=== PATIENT | female | born 1940 | race Caucasian/White ===

== ENCOUNTER → 2023-10-15 13:43 | Outpatient (REF) | payer MEDICARE, SELFPAY ==
[2023-10-15 14:05] LABS: % Eosinophils 4.4 % (0-6); % Immature Granulocytes 0.2 % (0-0.5); % Lymphocytes 20.8 % (20.5-51.1); % Monocytes 11.8 % (1.7-9.3); % Neutrophils 61.8 % (42.2-75.2); Absolute Basophils 0.1 10^3/uL (0-0.2); Absolute Eosinophils 0.2 10^3/uL (0-0.7); Absolute Lymphocytes 1.1 10^3/uL (1.2-3.4); Absolute Monocytes 0.6 10^3/uL (0.1-0.6); Absolute Neutrophils 3.2 10^3/uL (1.4-6.5); Hematocrit 36.2 % (37.0-47.0); Hemoglobin 11.8 g/dL (12.0-16.0); Mean Corp Hgb Conc. 32.6 g/dL (33.0-37.0); Mean Corpuscular Hgb 31.1 pg (27.0-31.0); Mean Corpuscular Volume 95.5 fL (81.0-99.0); Mean Platelet Volume 10.6 fL (7.4-10.4); Nucleated Red Blood Cells % 0 %; Platelet Count 169 10^3/uL (130-400); Red Blood Cell Count 3.79 10^6/uL (4.20-5.40); Red Cell Dist. Width 13.2 % (11.5-14.5); White Blood Cell Count 5.2 10^3/uL (4.8-10.8)
[2023-10-15 14:17] LABS: ALT (SGPT) 16 U/L (0-35); AST (SGOT) 27 U/L (14-36); Albumin 3.3 g/dl (3.5-5.0); Alkaline Phosphatase 95 U/L (38-126); Blood Urea Nitrogen 24 mg/dl (7-17); Calcium 9.4 mg/dl (8.4-10.2); Carbon Dioxide 27 mmol/L (22-30); Chloride 109 mmol/L (98-107); Glucose 86 mg/dl (70-99); HDL Cholesterol 68 mg/dl; LDL Cholesterol, Calculated 44 mg/dl; Sodium 140 mmol/L (135-145); Total Bilirubin 0.3 mg/dl (0.2-1.3); Total Cholesterol 123 mg/dl (50-199); Total Protein 5.8 g/dl (6.3-8.2); Triglyceride 59 mg/dl (10-149); Very Low Density Lipoprotein 11 mg/dl (0-30); eGFR > 60.00
[2023-10-15 14:33] LABS: Free T4 0.95 ng/dl (0.78-2.19); Vitamin D, 25-OH*** 35.1 ng/mL (30-80)
[2023-10-15 14:47] LABS: TSH 5.72 uIU/ml (0.47-4.68)
[2023-10-16 09:59] LABS: Glycohemoglobin (HgbA1c) 6.4 % (4.0-5.6)
== END ==
LOC: OLABMERCHI 13:43
PROVIDERS: Nurse Practitioner Gerontology; ATTENDING PHYSICIAN Hospitalist
DX: R94.4 Abnormal results of kidney function studies (principal); D64.9 Anemia, unspecified; E78.5 Hyperlipidemia, unspecified; E11.9 Type 2 diabetes mellitus without complications; E03.9 Hypothyroidism, unspecified; N30.00 Acute cystitis without hematuria; E55.9 Vitamin D deficiency, unspecified
CPT/HCPCS: 36415; 80053; 80061; 82306; 83036; 84439; 84443; 85025

== ENCOUNTER 2024-02-02 02:48 | Emergency (ER) | payer MEDICARE, SELFPAY ==
[2024-02-02 03:13] VITALS: BP 149/89
--- NOTE | 2024-02-02 03:56 | ED.GENMED ---
History of Present Illness
<REJI Taylor - Last Filed: 02/02/24 04:10>
General
Chief Complaint: Fall
Source: patient
Exam Limitations: dementia
Time Seen by Provider: 02/02/24 03:48
Nursing documentation reviewed up to this point in time: agreed with
History of Present Illness
History of Present Illness:
Patient is a 83yo F w/ hx of dementia who presents to ED after unwitnessed fall. Pt was found on ground next to bed. She does not remember falling, remembers waking up on floor. Does not remember if she was in pain but could not move. She denies any
pain currently or other sxs currently.
Review of Systems
<REJI Taylor - Last Filed: 02/02/24 04:10>
Review of Systems
Constitutional: Denies fever, fatigue or chills
Respiratory: Denies cough or trouble breathing
Cardiac: Denies chest pain or palpitations
ABD/GI: Denies abdominal pain, nausea, vomiting, diarrhea or constipated
Musculoskeletal: Denies joint pain, muscle pain, muscle stiffness, neck pain or back pain
Neurological: Denies dizzy, headache, weakness or numbness
Phy Exam
<REJI Taylor - Last Filed: 02/02/24 04:10>
General Physical Exam
General Presentation: well appearing
General age: appears stated age
General Skin: warm and dry
General Habitus: elderly
General Mental: alert
ENT Exam
ENT Exam: normocephalic
Eye Exam
Eye Exam: PERRL
Cardiovascular Exam
Cardiovascular Exam: regular rate/rhythm, no edema, no gallop and no murmur
Pulmonary Exam
Pulmonary Exam: lungs clear, no respiratory distress, no rales, no crackles, no rhonchi and no wheezing
Neurological Exam
Neurological Exam: alert, no motor deficits and speech normal
Musculoskeletal Exam
Musculoskeletal Exam: full ROM, no edema and other (no tenderness to palpation of B/L shoulder, elbow, wrist, thighs, knee, skins, ankles, feet. )
Course
<Christina Salgado STPA - Last Filed: 02/02/24 04:10>
Orders/Labs/Results
Orders:
Orders
02/02/24 04:03
Accucheck Once [Bedside Glucose Monitoring-ONCE] As Directed
02/02/24 04:25
Ambulate Patient-Treatment ONCE
Abnormal Lab Results
02/02/24
05:55
POC Glucose 141 H mg/dl
(70-99)
Vital Signs
Initial and Last Documented VS:
Initial Vital Signs
Temp Pulse Resp BP Pulse Ox
97.7 F 67 18 149/89 100
02/02/24 03:13 02/02/24 03:13 02/02/24 03:13 02/02/24 03:13 02/02/24 03:13
Last Documented Vital Signs
Temp Pulse Resp BP Pulse Ox
97.7 F 67 18 149/89 100
02/02/24 03:13 02/02/24 03:13 02/02/24 03:13 02/02/24 03:13 02/02/24 03:13
<Carlee Ghosh DO - Last Filed: 02/02/24 06:15>
Orders/Labs/Results
Orders:
Orders
02/02/24 04:03
Accucheck Once [Bedside Glucose Monitoring-ONCE] As Directed
02/02/24 04:25
Ambulate Patient-Treatment ONCE
Abnormal Lab Results
02/02/24
05:55
POC Glucose 141 H mg/dl
(70-99)
Vital Signs
Initial and Last Documented VS:
Initial Vital Signs
Temp Pulse Resp BP Pulse Ox
97.7 F 67 18 149/89 100
02/02/24 03:13 02/02/24 03:13 02/02/24 03:13 02/02/24 03:13 02/02/24 03:13
Last Documented Vital Signs
Temp Pulse Resp BP Pulse Ox
97.7 F 67 18 149/89 100
02/02/24 03:13 02/02/24 03:13 02/02/24 03:13 02/02/24 03:13 02/02/24 03:13
<REJI Taylor - Last Filed: 02/02/24 04:10>
*Critical Care Note
Total Time (30-74mins, 75-104mins- exclusive of procedures): Not Applicable
<Carlee Ghosh DO - Last Filed: 02/02/24 06:15>
*Pulse Oximetry
Patient hypoxic: no
*Leather Sprayer Interpretation
Rate: normal
Interpretation: normal
Rhythm: sinus
ED Attending Note
<REJI Taylor - Last Filed: 02/02/24 04:10>
-
Portions of this chart may have been created with voice recognition software.� Occasional wrong word or��sound alike� substitutions may have occurred due to the inherent limitations of voice recognition software.
<Carlee Ghosh DO - Last Filed: 02/02/24 06:15>
ED Attending Note
Patient seen and examined by attending physician: Yes
I performed the substantive portion of visit, reviewed & personally made and approve the management plan that is documented in note by myself or JAD.: Yes
ED Attending Note:
This is an 83-year-old woman who resides in a local penitentiary/dementia care unit. She has history of Alzheimer's dementia, hyperlipidemia, insulin requiring diabetes, GERD, hypothyroidism.
She is sent to the ED by [facility]entiary staff after suffering an unwitnessed fall. She denies injury.
She takes no anticoagulants save for low-dose aspirin.
Patient is not able to recall how or why she fell. She was found lying next to her bed.
TRAUMA EXAM:
VITAL SIGNS: Vital signs reviewed, cooperative. 83-year-old woman appears her stated age, bright and alert, pleasant, appears in no acute distress.
DISTRESS: No active disease
EYES: Pupils reactive, no orbital trauma
NOSE: No deformity or epistaxis
FACE AND SCALP: No scalp or facial trauma, external canals no blood
NECK: Supple nontender, full range of motion without difficulty nor pain.
BACK: Back nontender, pelvis stable to compression. Patient able to sit up with ease and without difficulty.
RESPIRATORY: No distress, breath sounds normal, no tender chest wall
CARDIAC: No murmur, pulses equal and strong
ABDOMEN: Soft nontender bowel sounds normal
SKIN: Skin intact no bleeding, color normal
EXTREMITIES: Nontender. There is very mild, early ecchymosis bilateral anterior knees left greater than right. No local tenderness to palpation. Full knee and hip range of motion without difficulty nor pain.
NEUROLOGICAL: Alert, oriented x 2, no motor deficits
PSYCH: Mood affect normal
History is quite limited due to dementia however patient remains bright and alert, cooperative, following commands and answering simple questions appropriately. Overall exam is
Benign, unremarkable. There is note of very minimal bruising anterior knees but no palpable tenderness and full range of motion. I suspect she may have fallen on her hands and knees. There is no evidence of head injury. She takes no
anticoagulants. Appears to be at her baseline. No indication for CT of the head.
As patient has history of diabetes, maintained on long-acting nighttime insulin, will check Accu-Chek.
Will ambulate patient and assess for ambulation stability and for any pain complaints.
If no difficulty ambulating will plan to discharge back to [facility] for continued care.
02/02/2024 0615 AM
Patient ambulated with steady unaided gait.
She continues to offer no complaints.
Accu-Chek 141.
Will discharge back to penitentiary for continued care.
Discharge Plan
Departure
Patient Disposition: Custodial/SNF
Date of Disposition: 02/02/24
Time of Disposition: 06:14
Patient with high blood pressure during this ER visit?: No
Condition: Good
Discharge Problem:
unwitnessed fall at penitentiary, bilateral knee contusions
Instructions: Contusion (DC), Preventing falls in adults
Referrals:
Linda Aranda, DO [Family Provider] - Call in 1-3 days for appt
Discharge Date and Time
Print Language: BARBADIAN
[2024-02-02 05:57] LABS: Glucose - Point of Care 141 mg/dl (70-99)
[2024-02-02 07:13] VITALS: BP 99/70
== END 2024-02-02 09:40 ==
LOC: EMR 02:48
PROVIDERS: EMERGENCY PHYSICIAN Emergency Medicine; FAMILY PHYSICIAN Hospitalist
DX: S80.01XA Contusion of right knee, initial encounter (principal); S80.02XA Contusion of left knee, initial encounter; W19.XXXA Unspecified fall, initial encounter; Y92.129 Unspecified place in nursing home as the place of occurrence of the external cause; I10 Essential (primary) hypertension; E03.9 Hypothyroidism, unspecified; E11.9 Type 2 diabetes mellitus without complications; E78.00 Pure hypercholesterolemia, unspecified; F02.80 Dementia in other diseases classified elsewhere, unspecified severity, without behavioral disturbance, psychotic disturbance, mood disturbance, and anxiety; G30.9 Alzheimer's disease, unspecified; K21.9 Gastro-esophageal reflux disease without esophagitis
CPT/HCPCS: 99282; 82962

== ENCOUNTER 2024-03-20 17:28 | Observation (INO) | payer MEDICARE, SELFPAY ==
[2024-03-20] VITALS (7 sets, daily range): BP systolic 114–155; BP diastolic 49–82; BMI 29.3
[2024-03-20 12:49] LABS: % Basophils 0.3 % (0-2); % Eosinophils 0.3 % (0-6); % Immature Granulocytes 0.3 % (0-0.5); % Lymphocytes 4.3 % (20.5-51.1); % Monocytes 9.5 % (1.7-9.3); % Neutrophils 85.3 % (42.2-75.2); Absolute Lymphocytes 0.3 10^3/uL (1.2-3.4); Absolute Monocytes 0.6 10^3/uL (0.1-0.6); Absolute Neutrophils 5.5 10^3/uL (1.4-6.5); Hemoglobin 13.5 g/dL (12.0-16.0); Mean Corp Hgb Conc. 32.9 g/dL (33.0-37.0); Mean Corpuscular Hgb 31.8 pg (27.0-31.0); Mean Corpuscular Volume 96.7 fL (81.0-99.0); Mean Platelet Volume 10.7 fL (7.4-10.4); Nucleated Red Blood Cells % 0 %; Platelet Count 136 10^3/uL (130-400); Red Blood Cell Count 4.24 10^6/uL (4.20-5.40); Red Cell Dist. Width 12.4 % (11.5-14.5); White Blood Cell Count 6.5 10^3/uL (4.8-10.8)
[2024-03-20 12:54] LABS: Urine Albumin Trace (Neg - Trace); Urine Bilirubin Negative (Negative); Urine Character Clear (Clear); Urine Color Yellow; Urine Glucose 2+ (Negative); Urine Ketone Negative (Negative); Urine Leukocyte Negative (Negative); Urine Nitrite Negative (Negative); Urine Occult Blood 2+ (Negative); Urine Specific Gravity 1.015 (<1.030); Urine Urobilinogen 1+ (Neg - 1+); Urine pH 6.5 (5.0-9.0)
[2024-03-20 12:59] LABS: Lactic Acid 2.2 mmol/L (0.7-2.0)
[2024-03-20 13:02] LABS: ALT (SGPT) 18 U/L (0-35); AST (SGOT) 25 U/L (14-36); Alkaline Phosphatase 90 U/L (38-126); Blood Urea Nitrogen 18 mg/dl (7-17); Calcium 9.3 mg/dl (8.4-10.2); Carbon Dioxide 24 mmol/L (22-30); Chloride 100 mmol/L (98-107); Estimated Creatinine Clearance 39 ml/min; Glucose 316 mg/dl (70-99); Potassium 4.2 mmol/L (3.5-5.1); Sodium 135 mmol/L (135-145); Total Bilirubin 0.5 mg/dl (0.2-1.3); Total Protein 6.4 g/dl (6.3-8.2); eGFR 49.86
[2024-03-20 13:11] LABS: COVID-19 Antigen Negative (Negative)
[2024-03-20 13:27] LABS: Urine Squamous Cell 0-2 /LPF (Few)
[2024-03-20 13:28] LABS: Urine Bacteria Few (Negative); Urine White Cell 0-2 /HPF (0-5)
[2024-03-20] MEDS: TYLENOL 650 MG PO ×2 (13:52→20:57)
--- NOTE | 2024-03-20 14:05 | ED.GENMED ---
History of Present Illness
General
Chief Complaint: Fever
Source: patient and family
Time Seen by Provider: 03/20/24 11:49
History of Present Illness
History of Present Illness:
84yoF with a history of dementia, hyperlipidemia, insulin dependent diabetes, and hypothyroidism presenting via EMS for evaluation of a fever. Patient is a resident of [facility]. The majority of history is provided by daughter at
bedside. Patient has been increasingly weak and fatigued over the past week or so. She has not been getting out of bed much. She is also having episodes of urinary incontinence at nighttime. Patient has a history of frequent UTIs and daughter is
concerned that she has 1 currently. She was febrile to 100.5 at her correction today which prompted EMS call. Patient's only current complaint is feeling fatigued.
Phy Exam
General Physical Exam
General Presentation: well appearing and no apparent distress
General age: appears stated age
General Skin: warm and dry
General Habitus: normal
ENT Exam
ENT Exam: normocephalic
Cardiovascular Exam
Cardiovascular Exam: regular rate/rhythm
Pulmonary Exam
Pulmonary Exam: lungs clear, no respiratory distress, no rales, no crackles, no rhonchi and other (Frequent dry cough)
Gastrointestinal Exam
Gastrointestinal Exam: non tender, soft and non distended
Neurological Exam
Neurological Exam: alert
Skin Exam
Skin Exam: normal color and warm/dry
Psychiatric Exam
Psychiatric Exam: normal mood/affect
Sepsis
Sepsis Screening
Sepsis Assessment: Sepsis Ruled Out
Sepsis Screen
Sepsis Screen: Sepsis Ruled Out
Date: 03/20/24
Time: 17:43
Course
Orders/Labs/Results
Orders:
Orders
03/20/24 11:57
Straight cath- Treatment ONCE
03/20/24 12:11
COVID-19 Antigen Urgent
Source: Nasal Swab
Complete Blood Count/With Diff Urgent
Comprehensive Metabolic Panel Urgent
Lactate Level [Lactic Acid] Urgent
Magnesium Urgent
Comment: ADD ON
Phosphorus Urgent
Comment: ADD ON
TSH Reflex To Free T4 Urgent
Comment: ADD ON
Blood Culture Q30M
MARCIAL Source: Blood/Venous
Specimen Description:
Blood Culture Q30M
MARCIAL Source: Blood/Venous
Specimen Description:
Influenza A+B Rapid Molecular Urgent
MARCIAL Source: Nasal Swab
Specimen Description:
03/20/24 12:27
Urinalysis Reflex To Culture Urgent
Date Specimen was Collected: 03/20/24
Time Specimen was Collected: 12:26
Urine Microscopic Reflex Cult Urgent
03/20/24 13:12
Electrocardiogram (*1) Urgent
Reason for Study: Fatigue / Weakness
EKG- Treatment ONCE
Acetaminophen [Tylenol] 650 mg PO NOW STA
CR Chest - 2 Views Urgent
Comment:
Reason For Exam: fever
03/20/24 14:08
0.9% Sodium Chloride 500 ml [Nss] 500 ml IV BOLUS
CefTRIAXone [Rocephin] 2,000 mg IV NOW STA
03/20/24 14:43
Sterile Water [Sterile Water For Injection] 20 ml .ROUTE .STK-MED
03/20/24 16:33
Add On- LAB Urgent
Tests Added?: tsh with free t4 rflex, mag , phos
03/20/24 17:09
Admit/Transfer Patient As Directed
Co-Sign Provider:
Level of Care: Observation services
Assign to:: Telemetry
Physician / Group: cody walker
Diagnosis: febrile illness likley viral URI, mike 2/2 to fever, dementia hx
Reason for Telemetry: Arrhythmia
Date to Stop Telemetry: 03/23/24
Time to Stop Telemetry: 11:00
Code Status As Directed
Resuscitation Status: Full Code
03/20/24 17:10
Lactic Acid Urgent
03/20/24 17:11
PRN Pain Medication Management As Directed
May give lesser potent ordered pain med per pt: Yes
preference::
Protocol:: Medication orders for pain may be administered in a
manner that supports deferring to patient preference
when the pt is:
- Requesting an ordered lesser potent pain medication.
Least to most potent pain medications are defined
as: acetaminophen < NSAID < tramadol < opioids
(morphine, oxycodone, hydromorphone).
- Requesting a lesser dose of the same medication IF
ORDERED.
- Requesting a less intrusive route of administration
if both routes are prescribed by the provider (PO <
IV).
03/23/24 11:00
DC Protocol for Telemetry ONCE
Abnormal Lab Results
03/20/24 03/20/24
12:11 12:27
MCH 31.8 H pg
(27.0-31.0)
MCHC 32.9 L g/dL
(33.0-37.0)
MPV 10.7 H fL
(7.4-10.4)
Absolute Lymphs (auto) 0.3 L 10^3/uL
(1.2-3.4)
Neutrophils % 85.3 H %
(42.2-75.2)
Lymphocytes % 4.3 L %
(20.5-51.1)
Monocytes % 9.5 H %
(1.7-9.3)
BUN 18 H mg/dl
(7-17)
Creatinine 1.1 H mg/dL
(0.6-1.0)
Glucose 316 H mg/dl
(70-99)
Lactic Acid 2.2 H mmol/L
(0.7-2.0)
Ur Occult Blood Reflex 2+ A
(Negative)
Urine RBC 7-10 A /HPF
(0-2)
Urine Bacteria (Reflex) Few A
(Negative)
Urine Glucose 2+ A
(Negative)
03/20/24 12:11
03/20/24 12:11
Vital Signs
Initial and Last Documented VS:
Initial Vital Signs
Pulse Ox
98
03/20/24 11:46
Last Documented Vital Signs
Temp Pulse Resp BP Pulse Ox
101.4 F H 76 18 124/57 96
03/20/24 12:03 03/20/24 15:00 03/20/24 12:03 03/20/24 14:47 03/20/24 17:00
MDM/Problems Addressed
Differential Diagnosis Includes:
84yoF here with generalized weakness and fatigue. Temp 100.5 at correction today. Hx of dementia. Rectal temp 101.4 on arrival. Remainder of vitals stable. Differential diagnosis includes but is not limited to: UTI, pneumonia, viral illness,
sepsis, failure to thrive
Initial ED plan: Check septic workup including blood cultures, lactate, UA, COVID/flu swab. Tylenol for fever.
*EKG
Interpreted by ED Provider?: Yes
EKG Intrepretation Date: 03/20/24
Heart Rate: 79
Rate: normal
Rhythm: sinus
[place]: normal axis
Interval: normal interval
QRS Pattern: normal QRS
Ischemia: no ischemia
*Critical Care Note
Total Time (30-74mins, 75-104mins- exclusive of procedures): Not Applicable
Update Note
Update Note:
Lactate 2.2. White count normal. Glucose 316. No overt signs of infection on UA. CXR obtained which appears normal. Unclear etiology of fever. IV Rocephin ordered and she was admitted for further management.
ED Attending Note
-
Portions of this chart may have been created with voice recognition software.� Occasional wrong word or��sound alike� substitutions may have occurred due to the inherent limitations of voice recognition software.
Discharge Plan
Departure
Patient Disposition: Admit
Date of Disposition: 03/20/24
Time of Disposition: 15:28
Presentation/result/management discussed w/ accepting MD/DO: Hospitalist
Discharge Problem:
Fever, Generalized weakness
Interventions
Interventions:
*Risk Screen - Suicide Last Done: 03/20/24 12:07
*General Assessment Last Done: 03/20/24 12:07
*Neglect/Abuse Screening Last Done: 03/20/24 12:07
ED- Fall Risk Assessment Last Done: 03/20/24 13:06
*ED COVID-19 Vaccine History Last Done: 03/20/24 12:07
ED- Neurological Assessment Last Done: 03/20/24 13:06
ED-Skin Assessment Last Done: 03/20/24 13:06
[2024-03-20] MEDS: ROCEPHIN 2000 MG IV (14:49)
[2024-03-20] MEDS: NSS 500 IV (14:50)
--- NOTE | 2024-03-20 16:33 | HPS.HSE ---
Family Physician
-
Family Physician: Edwin Champion
Chief Complaint
-
Fever, weakness today
History of Present Illness
84-year-old female from [facility] care presenting with fatigue and weakness over the past week with urinary incontinence at night and fever 101.4 rectal here on exam. She was reportedly febrile at [facility] 100.5 prior to coming to the
ER today. Her daughter Mirna is at bedside and states she has seen her over the past few days and noticed that she had some fatigue and worse cough than her baseline with flushed face secondary to current temperature. She denies hearing any
reports from the retirement regarding abdominal pain, vomiting, diarrhea, chest pain, diaphoresis, cough, shortness of breath. The patient is awake and alert oriented to first and last name and daughter's name but not history due to history of
dementia. Her granddaughter who is a nurse was on the phone I went over patient's lab work including chest x-ray COVID and flu results and plan to observe overnight repeat labs PT OT consult and likely discharge back to [facility] if stable. She
has past medical history of dementia, HLD, DM2, CKD 3B, asthma, hypothyroidism, GERD, hypothyroidism, insomnia, glaucoma, osteoporosis, frequent UTIs.
Medical History
Past Medical History
Past Medical History: Reports Other
Additional Past Medical History:
dementia
HLD
DM2
CKD 3B
asthma
hypothyroidism
GERD
insomnia
glaucoma
osteoporosis
frequent UTIs.
Past Surgical History: Reports Other
Additional Past Surgical History:
Hysterectomy
Cholecystectomy
Social History
Tobacco: Non-smoker
Alcohol: None
Drug: None
Personal:
Living: Jail ([facility] dementia unit)
Employment: Retired
Family History
Family History: Unable to Obtain
Allergies / Home Medications
Allergies reflects when Allergies were last updated in [employer].
Home Medications with original date entered in [employer]
Allergy/Medication List:
Allergies
Allergy/AdvReac Type Severity Reaction Status Date / Time
donepezil [From Aricept] Allergy Unknown Verified 02/02/24 03:13
memantine [From Namenda] Allergy Unknown Verified 02/02/24 03:13
iodinated diagnostic agent Allergy Unknown Uncoded 02/02/24 03:13
Home Medications
aspirin 81 mg chewable tablet 81 mg PO DAILY 02/02/24
insulin degludec 200 unit/mL (3 mL) subcutaneous pen 18 unit SC DAILY 02/02/24
latanoprost 0.005 % eye drops 1 drp BOTH EYES HS 02/02/24
levothyroxine 50 mcg tablet 50 mcg PO DAILY 02/02/24
melatonin 5 mg tablet 5 mg PO HS 02/02/24
montelukast 10 mg tablet 10 mg PO DAILY 02/02/24
omeprazole 40 mg capsule,delayed release 40 mg PO DAILY 02/02/24
rosuvastatin 20 mg tablet 20 mg PO HS 02/02/24
nystatin 100,000 unit/gram topical powder 1 applic topical BID abd folds 03/20/24
zinc oxide 1 applic topical TID buttocks 03/20/24
Review of Systems
-
History Source: Patient and Family (Daughter Mirna at bedside, granddaughter via phone)
A 12 point ROS was completed and negative except as noted: Yes
Constitutional: Reports Fever and Other (Reported weakness); Denies Chills
EENT: Denies Sore Throat or Runny Nose
Respiratory: Denies Cough or Trouble Breathing
Cardiac: Denies Chest Pain, Diaphoresis, Palpitations or Syncope
Abdomen/GI: Denies Abdominal Pain, Nausea, Vomiting, Diarrhea, Constipated, Bloody Stools or Black Stools
: Denies Dysuria, Flank Pain or Urgency
Musculoskeletal: Denies Joint Pain or Edema
Skin: Reports Other (Flushed face secondary to current fever); Denies Itching or Rash
Neurological: Denies Dizzy, Headache or Weakness
Endocrine: Reports No Symptoms
Hematologic/Lymphatic: Reports No Symptoms
Psych: Reports Calm
Physical Exam
Vital Signs
Vital Signs
Temp Pulse Resp BP Pulse Ox
101.4 F H 75 18 121/61 98
03/20/24 12:03 03/20/24 14:30 03/20/24 12:03 03/20/24 12:03 03/20/24 12:30
Physical Exam
General: Comfortable, Conversant, Fever and Other (Pleasantly confused oriented to first and last name, daughter at bedside); No Pain or Chills
HEENT: NormoCephalic, Anicteric, PERRLA, [place] Conjunctivae, No Ptosis and Other (Flushed facial appearance secondary to current fever)
Respiratory: Clear; No Wheezes, Rales or Rhonchi
Cardiac: S1/S2 and Regular Rhythm; No Murmur, Rub, Gallop or Peripheral Edema
Breast: Deferred by me
GI: Soft, Non Tender, Non Distended, Normal Bowel Sounds and No Hepatosplenomegaly
Rectal: Deferred by Provider
Genito-urinary: Deferred by me
Musculoskeletal: No Clubbing, No Cyanosis and No Edema
Skin: Warm and Dry; No Rash or Jaundice
Neuro: Awake, Alert, Oriented (To first and last name, daughter at bedside but not history), Cranial Nerves Intact and No Sensory Deficits; No Slurred Speech, Facial Droop, Tremors or Sedated
Psych: Calm
Laboratory Results
-
03/20/24 12:11
03/20/24 12:11
Laboratory Results
Lactic Acid 2.2 mmol/L (0.7-2.0) H 03/20/24 12:11
Total Bilirubin 0.5 mg/dl (0.2-1.3) 03/20/24 12:11
AST 25 U/L (14-36) 03/20/24 12:11
ALT 18 U/L (0-35) 03/20/24 12:11
Alkaline Phosphatase 90 U/L (38-126) 03/20/24 12:11
Impression/Plan
-
Impression/plan:
OBS telemetry
#Acute febrile illness with cough unclear etiology likely Viral illness URI
101.4F temp, HR 75, 121/61, 98% RA
WBC 6.5 normal, lactic acid 2.2,
UA negative, COVID/influenza negative, CXR negative
-Check blood cultures x 2
-Patient was given IV Rocephin in ER we will hold further antibiotics as this is likely due to viral URI
-Follow CBC, BMP, follow lactic acid
-IV NSS 80 cc/h
-PT/OT/case management consult
EKG: HR 79 bpm NSR otherwise normal
#DONITA on CKD 3B
Creat 1.1 was 0.9 10/15/2023
-IV NSS 80 cc/hr
-Follow BMP
#DM2 with hyperglycemia-nonketotic
BS 316 anion gap 11
-Accu-Cheks with SSI LOW, check HgbA1c
-Cont insulin degludec 18 units subcu a.m.
# Dementia
-Lives at [facility]
-Fall precautions
#HLD
-Continue Crestor 20 mg at bedtime
#Asthma-no acute exacerbation
98% on room air
-No inhalers listed
-Continue montelukast 10 mg daily
#Hypothyroidism
-Check TSH with free T4 reflex
-Continue levothyroxine 50 mcg p.o. daily
#GERD
-Continue omeprazole 40 mg daily
#insomnia
-Hold melatonin
Other PMH:
Glaucoma-continue latanoprost 1 drop both eyes at bedtime
osteoporosis
frequent UTIs-UA negative
DVT prophylaxis
Subcu Lovenox
Full code
Patient's medical and financial POA is her son Satish García her daughter Mirna states he is currently in [place] on vacation she has been unable to reach him
[2024-03-20 17:08] LABS: Magnesium 1.8 mg/dl (1.6-2.3); Phosphorus 3.3 mg/dl (2.5-4.5)
--- NOTE | 2024-03-20 17:11 | W.PN.UPDATE ---
Update Note
Progress Note Update
This is an addendum to the H&P written by Ai Jaime on 03/20/2024. Patient seen and examined independently with MANAGER LSW.
84-year-old female past medical history of diabetes, hyperlipidemia, dementia, CKD 3B, asthma, hypothyroidism, GERD, insomnia, glucoma, osteoporosis, frequent UTIs, presenting from [facility] with fever, weakness, generalized bodyaches
and worse cough. Chest x-ray unremarkable. Patient not clinically septic. Since
Slight DONITA on labs. COVID and influenza negative. Urinalysis unimpressive. Blood cultures pending.
Presentation consistent with viral URI. Tylenol, IV fluids. Given ceftriaxone will hold further antibiotics.
[2024-03-20 17:46] LABS: TSH Reflex To Free T4 1.02 uIU/ml (0.47-4.68)
--- NOTE | 2024-03-20 18:37 | EDRN ---
Pt's daughter stated she spoke to her brother, who is the patient's POA. He said the pt is a DNR. He does have paper work but is in [place]. Provider notified.
[2024-03-20 18:46] LABS: Lactic Acid 1.5 mmol/L (0.7-2.0)
[2024-03-20] MEDS: NSS 1000 IV (20:48)
[2024-03-20] MEDS: LOVENOX 40 MG SC (20:58)
--- NOTE | 2024-03-20 21:29 | W.PN.UPDATE ---
Update Note
Progress Note Update
Patient seen for suspected allergic reaction. Patient very flushed, face and chest. She denies shortness of breath, itching, nausea/vomiting at this time. Ordered Benadryl 25 mg IV x 1 and Famotidine 20 mg IV x 1 now.
[2024-03-20 21:38] LABS: Glucose - Point of Care 113 mg/dl (70-99)
[2024-03-20] MEDS: PEPCID 20 MG IV (21:38)
[2024-03-20] MEDS: NSS (PRESERVATIVE FREE) 8 ML IV (21:38)
[2024-03-20] MEDS: BENADRYL 25 MG IV (21:38)
--- NOTE | 2024-03-20 21:40 | PTCARENOTE ---
Received pt from ED via stretcher. patient transferred from bed to standing scale with moderate assistance. Pt only oriented to self (baseline/history of dementia) daughter at bedside. Pt and daughter updated with plan of care and oriented to room.
bed is alarmed and low to floor with call lam in reach. Face is flushed red and patient denies any SOB or chest pain, VSS. COMMUTER TRAIN OPERATOR ordered 25mg of IV Benadryl along with 20mg IV pepcid for possible IV Antibiotic given in ED. All orders reviewed and
acknowledged.
[2024-03-20] MEDS: TRIPLE PASTE 1 APPLIC TOPICAL (22:39)
[2024-03-20] MEDS: XALATAN OPHTHALMIC SOLUTION 1 DROP BOTH EYES (22:39)
--- NOTE | 2024-03-20 23:45 | PTCARENOTE ---
Patient consistently making attempts to get out of bed. Unable to redirect patient and patient aggressive behavior escalating to screaming and grabbing staff members aggressively by the arms. MAIL MACHINE OPERATOR notified. Patient ordered and given 3mg of
melatonin.
[2024-03-21] VITALS (7 sets, daily range): BP systolic 103–144; BP diastolic 57–78; PULSE 82; O2SAT 99
[2024-03-21] MEDS: MELATONIN 3 MG PO (00:32)
[2024-03-21] MEDS: SYNTHROID 50 MCG PO (05:56)
[2024-03-21 07:58] LABS: Glucose - Point of Care 107 mg/dl (70-99)
[2024-03-21] MEDS: NOVOLOG FLEXPEN-LOW RESISTANCE SC (08:04)
--- NOTE | 2024-03-21 08:59 | W.PN.HOSP.TC ---
Today's Communication/Plan
-
Discharge planning today
Assessment / Plan
Assessment / Plan
Physical exam:
General: Well Developed, Well Nourished and No Apparent Distress
HEENT: Normocephalic, Atraumatic and Moist Mucous Membranes
Respiratory: Clear to Auscultation; Negative Wheezes, Rales or Rhonchi
Cardiac: Regular Rhythm and S1/S2
GI: Soft, Nontender and Nondistended
Musculoskeletal: No Clubbing, No Cyanosis and No Edema
Neuro: Awake, Alert and Disoriented
Psych: Calm
A/P:
#Acute febrile illness with cough unclear etiology likely Viral illness URI
Afebrile today
Agree that this is likely viral syndrome. All infectious workup for bacterial infection is negative.
Stop IV fluid
Discussed with patient daughter at bedside today and blood cultures no growth and she is asymptomatic therefore plan to discharge today. PT OT recommended rehab but daughter is making decision for the patient due to her dementia and she is not
interested in rehab at the moment and wants to return back to memory unit today.
Prior to today:
101.4F temp, HR 75, 121/61, 98% RA
WBC 6.5 normal, lactic acid 2.2,
UA negative, COVID/influenza negative, CXR negative
-Check blood cultures x 2
-Patient was given IV Rocephin in ER we will hold further antibiotics as this is likely due to viral URI
-Follow CBC, BMP, follow lactic acid
-IV NSS 80 cc/h
-PT/OT/case management consult
EKG: HR 79 bpm NSR otherwise normal
#Abnormal rhythm on telemetry:
Abnormal rhythm, unclear if a flutter or interference
I reviewed the rhythm with cardiology (curbsided) and no clear definitive arrhythmia. Twelve-lead EKG repeated today and it is normal sinus rhythm. Will arrange outpatient cardiology eval to see if an event monitor would be useful.
Allergic reaction:
- Resolved
#DONITA on CKD 3B
Creatinine 0.9 today
Stop IV fluid
Prior to today:
Creat 1.1 was 0.9 10/15/2023
-IV NSS 80 cc/hr
-Follow BMP
#DM2 with hyperglycemia-nonketotic
Blood sugar 114 this morning
Prior to today:
BS 316 anion gap 11
-Accu-Cheks with SSI LOW, check HgbA1c
-Cont insulin degludec 18 units subcu a.m.
# Dementia
-Lives at [facility]
-Fall precautions
#HLD
-Continue Crestor 20 mg at bedtime
#Asthma-no acute exacerbation
98% on room air
-No inhalers listed
-Continue montelukast 10 mg daily
#Hypothyroidism
-Check TSH with free T4 reflex and borderline elevated TSH and normal free T4
-Continue levothyroxine 50 mcg p.o. daily
#GERD
-Continue omeprazole 40 mg daily
#insomnia
-Held melatonin but can restart upon discharge
Other PMH:
Glaucoma-continue latanoprost 1 drop both eyes at bedtime
osteoporosis
frequent UTIs-UA negative
DVT prophylaxis
Subcu Lovenox
Full code
Anticipated Discharge: Today
Subjective/Interval History
-
Date of Service: March 21, 2024
Patient feels well today. Afebrile
Objective Data
-
Labs:
Laboratory Results
03/21/24
08:56
WBC Pending
Hgb Pending
Hct Pending
Plt Count Pending
Sodium Pending
Potassium Pending
Chloride Pending
Carbon Dioxide Pending
BUN Pending
Creatinine Pending
Glucose Pending
Calcium Pending
Total Bilirubin Pending
AST Pending
ALT Pending
Alkaline Phosphatase Pending
Vital Signs:
Vital Signs
Temp Pulse Resp BP Pulse Ox
97.8 F 74 18 144/58 100
03/21/24 07:40 03/21/24 07:40 03/21/24 07:40 03/21/24 07:40 03/21/24 07:40
I&O
03/20/24 03/21/24 03/22/24
06:59 06:59 06:59
Intake Total 800 / 800
Balance 800 / 800
[2024-03-21] MEDS: PROTONIX 40 MG PO (09:15)
[2024-03-21] MEDS: LOW STRENGTH ASPIRIN 81 MG PO (09:15)
[2024-03-21] MEDS: SINGULAIR 10 MG PO (09:16)
[2024-03-21] MEDS: TRIPLE PASTE 1 APPLIC TOPICAL ×2 (09:17→16:23)
[2024-03-21 09:20] LABS: % Basophils 0.5 % (0-2); % Eosinophils 0.5 % (0-6); % Immature Granulocytes 0.3 % (0-0.5); % Lymphocytes 12.2 % (20.5-51.1); % Monocytes 10.2 % (1.7-9.3); % Neutrophils 76.3 % (42.2-75.2); Absolute Lymphocytes 0.8 10^3/uL (1.2-3.4); Absolute Monocytes 0.7 10^3/uL (0.1-0.6); Absolute Neutrophils 4.9 10^3/uL (1.4-6.5); Hemoglobin 13.9 g/dL (12.0-16.0); Mean Corp Hgb Conc. 32.3 g/dL (33.0-37.0); Mean Corpuscular Volume 98.9 fL (81.0-99.0); Mean Platelet Volume 10.4 fL (7.4-10.4); Nucleated Red Blood Cells % 0 %; Platelet Count 114 10^3/uL (130-400); Red Blood Cell Count 4.35 10^6/uL (4.20-5.40); Red Cell Dist. Width 12.5 % (11.5-14.5); White Blood Cell Count 6.4 10^3/uL (4.8-10.8)
[2024-03-21 09:26] LABS: ALT (SGPT) 18 U/L (0-35); AST (SGOT) 33 U/L (14-36); Alkaline Phosphatase 84 U/L (38-126); Blood Urea Nitrogen 18 mg/dl (7-17); Calcium 9.2 mg/dl (8.4-10.2); Carbon Dioxide 20 mmol/L (22-30); Chloride 108 mmol/L (98-107); Estimated Creatinine Clearance 46 ml/min; Glucose 114 mg/dl (70-99); Potassium 3.9 mmol/L (3.5-5.1); Sodium 140 mmol/L (135-145); Total Bilirubin 0.5 mg/dl (0.2-1.3); Total Protein 6.7 g/dl (6.3-8.2); eGFR > 60.00
[2024-03-21] MEDS: LANTUS 0.18 UNITS SC (10:29)
--- NOTE | 2024-03-21 10:46 | CM ---
Pt seen bedside w/ daughter, Mirna. Initial assessment completed.
Pt is a resident at [facility] in the memory care unit. Pt is w/ dementia
Pt is independent w/ the use of a walker. Per Mirna, pt is assisted w/ grooming, she assists pt w/ bathing on the weekends.
Per Mirna, pt has no SNF hx, had VN/PT in the past for ankle sprain
Address, point of contact and insurance verified.
PCP: Dr. Edwin Champion
[facility]
PT/OT eval pending, await recs if any
Pt currently admitted in OBS status. BROWN form reviewed, Mirna given copy. Copy placed in chart
Plan: Await PT/OT to determine d/c plan. Pt may can return to [facility] if no rehab needs
[2024-03-21 11:08] LABS: Glycohemoglobin (HgbA1c) 8.3 % (4.0-5.6)
[2024-03-21 11:56] LABS: Glucose - Point of Care 289 mg/dl (70-99)
[2024-03-21] MEDS: NOVOLOG FLEXPEN-LOW RESISTANCE 3 UNITS SC (12:53)
--- NOTE | 2024-03-21 15:57 | W.DCSUMMARY ---
Discharge Summary
Discharge Data
Date of Admission: 03/20/24
Date of Discharge: 03/21/24
-
Pending Results: No
Hospital Course
Patient 84 years old female with history of hypertension, hyperlipidemia, diabetes mellitus, CKD, hypothyroidism, dementia, frequent UTIs, came into the hospital with fever. Patient was kept in observation in the hospital and given IV fluids and
supportive care. She had blood cultures x 2. Blood cultures have remained sterile. She also had chest x-ray and urinalysis that was unremarkable. She had an antibiotic when she came in but that was discontinued. She also might have had an
allergic reaction to it. It sounds like she had a viral syndrome. The following day she was doing well symptomatically and has remained afebrile. She also had an abnormal rhythm on telemetry but when we did that twelve-lead EKG it was normal
sinus rhythm and she has remained asymptomatic. We discussed to refer her to outpatient cardiology for event monitor as outpatient. PT OT saw the patient and recommended rehab but when I talked to patient and family they did not want to pursue
rehab and they want to go back to memory care unit at the same level that she came in. She is stable for discharge today.
Discharge Plan
-
Patient Disposition: Assisted Living
Discharge Diagnosis/Procedures: Viral syndrome. Acute kidney injury. Dementia.
Diet: Low Cholesterol
Activity: As tolerated
Blood Work: Please PCP to order CBC, BMP within 1 week
Referrals:
Henri Drew DO [Active] - in two to four weeks (Abnormal rhythm r/o a fib.)
Edwin Champion DO [Family Provider] - in less than 1 week
Prescriptions:
Continued
latanoprost 0.005 % Drops
1 drp BOTH EYES HS
omeprazole 40 mg Capsule,Delayed Release(Dr/Ec)
40 mg PO DAILY
levothyroxine 50 mcg Tablet
50 mcg PO DAILY
aspirin 81 mg Tablet,Chewable
81 mg PO DAILY
montelukast 10 mg Tablet
10 mg PO DAILY
rosuvastatin 20 mg Tablet
20 mg PO HS
melatonin 5 mg Tablet
5 mg PO HS
insulin degludec 200 unit/mL (3 mL) Insulin Pen
18 unit SC DAILY
nystatin 100,000 unit/gram Powder
1 applic TOPICAL BID
zinc oxide Ointment
1 applic TOPICAL TID
Discharge Orders:
Discharge Patient (As Directed); Ordered 03/21/24
Ordered By: Hu Ware
Discharge Date and Time
Discharge Date/Time: 03/21/24 18:15
Print Language: NEPALI
[2024-03-21 16:13] LABS: Glucose - Point of Care 173 mg/dl (70-99)
[2024-03-21] MEDS: NOVOLOG FLEXPEN-LOW RESISTANCE 1 UNITS SC (16:23)
--- NOTE | 2024-03-21 17:40 | CM ---
has discharged pt to return to [facility].
Per pt's daughter, she called [facility] and states pt can return; daughter to provide transport.
HEIDY called [facility] to discuss return; spoke with Juanita who advised that she did not tell the daughter that pt could return. HEIDY coordinated with EDELMIRA Lanza to provide Juanita with nursing report to determine if Anabell could be accepted back to
[facility]. Family is not interested in rehabilitation services.
Juanita is agreeable to pt returning after discussion with RN.
Plan: Discharge [facility]. Daughter will provide transport.
[facility] Report: [phone]
[facility]
== END 2024-03-21 18:15 | disposition home or self-care (01) ==
LOC: 4 EAST ACU 17:28
PROVIDERS: Clinical Nurse Specialist Family Health; Physician Assistant; ADMITTING PHYSICIAN Hospitalist; ATTENDING PHYSICIAN Hospitalist; EMERGENCY PHYSICIAN Student in an Organized Health Care Education/Training Program; FAMILY PHYSICIAN Family Medicine
DX: R50.9 Fever, unspecified (principal); R53.1 Weakness; R53.83 Other fatigue; N39.44 Nocturnal enuresis; R05.9 Cough, unspecified; R94.31 Abnormal electrocardiogram [ECG] [EKG]; G47.00 Insomnia, unspecified; R23.2 Flushing; F03.918 Unspecified dementia, unspecified severity, with other behavioral disturbance; E78.5 Hyperlipidemia, unspecified; E11.22 Type 2 diabetes mellitus with diabetic chronic kidney disease; E11.65 Type 2 diabetes mellitus with hyperglycemia; E03.9 Hypothyroidism, unspecified; I12.9 Hypertensive chronic kidney disease with stage 1 through stage 4 chronic kidney disease, or unspecified chronic kidney disease; N17.9 Acute kidney failure, unspecified; N18.32 Chronic kidney disease, stage 3b; K21.9 Gastro-esophageal reflux disease without esophagitis; J45.909 Unspecified asthma, uncomplicated; H40.9 Unspecified glaucoma; M81.0 Age-related osteoporosis without current pathological fracture; Z87.440 Personal history of urinary (tract) infections; Z79.4 Long term (current) use of insulin; Z90.49 Acquired absence of other specified parts of digestive tract; Z88.8 Allergy status to other drugs, medicaments and biological substances; Z91.041 Radiographic dye allergy status; Z79.890 Hormone replacement therapy; Z11.52 Encounter for screening for COVID-19; Z60.2 Problems related to living alone
CPT/HCPCS: 71046; 80053; 81003; 81015; 82962; 83036; 83605; 83735; 84100; 84443; 85025; 87040; 87502; 87811; 93005; 96374; 97116; 97163; 97166; 99285; G0378

== ENCOUNTER 2024-04-07 09:04 | Emergency (ER) | payer MEDICARE, SELFPAY ==
[2024-04-07 09:14] VITALS: BP 124/82
[2024-04-07 09:50] LABS: % Basophils 0.7 % (0-2); % Eosinophils 4.8 % (0-6); % Immature Granulocytes 0.4 % (0-0.5); % Lymphocytes 23.4 % (20.5-51.1); % Monocytes 10.3 % (1.7-9.3); % Neutrophils 60.4 % (42.2-75.2); Absolute Eosinophils 0.3 10^3/uL (0-0.7); Absolute Lymphocytes 1.3 10^3/uL (1.2-3.4); Absolute Monocytes 0.6 10^3/uL (0.1-0.6); Absolute Neutrophils 3.4 10^3/uL (1.4-6.5); Hematocrit 36.6 % (37.0-47.0); Hemoglobin 12.5 g/dL (12.0-16.0); Mean Corp Hgb Conc. 34.2 g/dL (33.0-37.0); Mean Corpuscular Hgb 32.3 pg (27.0-31.0); Mean Corpuscular Volume 94.6 fL (81.0-99.0); Mean Platelet Volume 10.5 fL (7.4-10.4); Nucleated Red Blood Cells % 0 %; Platelet Count 188 10^3/uL (130-400); Red Blood Cell Count 3.87 10^6/uL (4.20-5.40); Red Cell Dist. Width 12.4 % (11.5-14.5); White Blood Cell Count 5.7 10^3/uL (4.8-10.8)
[2024-04-07 10:00] VITALS: BP 123/80
[2024-04-07] MEDS: NSS 500 IV (10:03)
--- NOTE | 2024-04-07 10:07 | ED.GENMED ---
History of Present Illness
General
Chief Complaint: Cold/Flu/URI Symptoms
Source: patient, ambulance crew and alf
Exam Limitations: dementia
Time Seen by Provider: 04/07/24 09:48
Nursing documentation reviewed up to this point in time: agreed with
History of Present Illness
History of Present Illness:
Patient with history of dementia, presents to ED from alf secondary to near syncope. Per son at bedside, who received phone call from alf, patient was being walked down to dining negron for breakfast this morning, when she
experienced dizziness with near syncope. However, there was no loss of consciousness. Upon arrival to ED, patient is alert and awake, but pleasantly confused. Patient has no complaints. Son confirms that the patient is at her baseline at this
point. Patient has had URI symptoms for the past 1 month, which is improving.
Review of Systems
Review of Systems
Allergies reviewed?: Yes
Unable to obtain full review of systems at this time due to: dementia
All Other Systems: Not applicable
Phy Exam
Physical Exam
Physical Exam:
Physical Exam
General: no apparent distress, not acutely ill. afebrile.
Head: nc/at. eomi
Neck: supple. normal range of motion.
Heart: s1/s2 regular rate and rhythm, no murmur. equal radial pulses.
Lungs: no acute respiratory distress. clear bilaterally
Abdomen: normal bowel sounds. not tender.
Neuro: alert and oriented x 1. no focal neurological deficits
Skin: no rash
Psychiatric: well kept. interactive and cooperative
Extremities: no edema. no calf tenderness
Course
Orders/Labs/Results
Orders:
Orders
04/07/24 09:24
Complete Blood Count/With Diff Urgent
Comprehensive Metabolic Panel Urgent
04/07/24 09:25
COVID-19 Antigen Urgent
Source: Nasal Swab
INF RAPID [Influenza A+B Rapid Molecular] Urgent
MARCIAL Source: Nasal Swab
Specimen Description:
04/07/24 09:57
0.9% Sodium Chloride 500 ml [Nss] 500 ml IV BOLUS
Abnormal Lab Results
04/07/24
09:24
RBC 3.87 L 10^6/uL
(4.20-5.40)
Hct 36.6 L %
(37.0-47.0)
MCH 32.3 H pg
(27.0-31.0)
MPV 10.5 H fL
(7.4-10.4)
Monocytes % 10.3 H %
(1.7-9.3)
Glucose 152 H mg/dl
(70-99)
04/07/24 09:24
04/07/24 09:24
Vital Signs
Initial and Last Documented VS:
Initial Vital Signs
Temp Pulse Resp BP Pulse Ox
97.7 F 74 26 124/82 99
04/07/24 09:14 04/07/24 09:14 04/07/24 09:14 04/07/24 09:14 04/07/24 09:14
Last Documented Vital Signs
Temp Pulse Resp BP Pulse Ox
97.7 F 63 12 123/80 98
04/07/24 09:14 04/07/24 10:08 04/07/24 10:00 04/07/24 10:00 04/07/24 10:00
MDM/Problems Addressed
MDM/Problems Addressed:
Patient with near syncopal episode at alf, without obvious etiology. As event occurred prior to having her breakfast, quite possible that she may have had symptoms related to transient hypoglycemia versus dehydration versus others.
Difficult to exclude arrhythmia entirely however. At this time, after much discussion with son at bedside, who is power of workers compensation defense attorney, decision made to discharge patient back to alf at this time, as son states that she has had number of
similar symptoms in the past. Does not feel that she needs any further workup at this time. Son will drive patient back to alf on his own.
*Critical Care Note
Total Time (30-74mins, 75-104mins- exclusive of procedures): Not Applicable
ED Attending Note
-
Portions of this chart may have been created with voice recognition software.� Occasional wrong word or��sound alike� substitutions may have occurred due to the inherent limitations of voice recognition software.
Discharge Plan
Departure
Patient Disposition: Residential/SNF
Date of Disposition: 04/07/24
Time of Disposition: 10:11
Patient with high blood pressure during this ER visit?: Yes
Discharge Problem:
Near syncope
Instructions: Near Fainting (DC)
Prescriptions:
No Action
latanoprost 0.005 % Drops
1 drp BOTH EYES HS
omeprazole 40 mg Capsule,Delayed Release(Dr/Ec)
40 mg PO DAILY
levothyroxine 50 mcg Tablet
50 mcg PO DAILY
aspirin 81 mg Tablet,Chewable
81 mg PO DAILY
montelukast 10 mg Tablet
10 mg PO DAILY
rosuvastatin 20 mg Tablet
20 mg PO HS
melatonin 5 mg Tablet
5 mg PO HS
insulin degludec 200 unit/mL (3 mL) Insulin Pen
18 unit SC DAILY
nystatin 100,000 unit/gram Powder
1 applic TOPICAL BID
zinc oxide Ointment
1 applic TOPICAL TID
Referrals:
Uma Oliver PA-C [Family Provider] -
Activity Restrictions/Additional Instructions:
As discussed, you are being discharged back to alf for continual care.
Interventions
Interventions:
*Risk Screen - Suicide Last Done: 04/07/24 09:21
*General Assessment Last Done: 04/07/24 09:18
*Neglect/Abuse Screening Last Done: 04/07/24 09:21
*ED COVID-19 Vaccine History Last Done: 04/07/24 09:18
*Nursing Disposition Last Done: 04/07/24 11:00
ED- Pulmonary Assessment Last Done: 04/07/24 09:45
Discharge Date and Time
Discharge Date/Time: 04/07/24 11:02
Print Language: IVORIAN
[2024-04-07 10:11] LABS: COVID-19 Antigen Negative (Negative)
[2024-04-07 10:22] LABS: ALT (SGPT) 14 U/L (0-35); AST (SGOT) 22 U/L (14-36); Albumin 3.8 g/dl (3.5-5.0); Alkaline Phosphatase 95 U/L (38-126); Blood Urea Nitrogen 15 mg/dl (7-17); Calcium 9.3 mg/dl (8.4-10.2); Carbon Dioxide 27 mmol/L (22-30); Chloride 104 mmol/L (98-107); Glucose 152 mg/dl (70-99); Potassium 4.3 mmol/L (3.5-5.1); Sodium 139 mmol/L (135-145); Total Bilirubin 0.5 mg/dl (0.2-1.3); Total Protein 6.3 g/dl (6.3-8.2); eGFR > 60.00
== END 2024-04-07 11:02 ==
LOC: EMR 09:04
PROVIDERS: EMERGENCY PHYSICIAN Emergency Medicine; FAMILY PHYSICIAN Physician Assistant
DX: R55 Syncope and collapse (principal); F03.90 Unspecified dementia, unspecified severity, without behavioral disturbance, psychotic disturbance, mood disturbance, and anxiety
CPT/HCPCS: 99282; 80053; 85025; 87502; 87811

== ENCOUNTER → 2024-04-14 12:05 | Outpatient (REF) | payer MEDICARE, SELFPAY ==
[2024-04-14 12:56] LABS: Blood Urea Nitrogen 21 mg/dl (7-17); Calcium 9.3 mg/dl (8.4-10.2); Carbon Dioxide 24 mmol/L (22-30); Chloride 105 mmol/L (98-107); Glucose 233 mg/dl (70-99); Potassium 4.8 mmol/L (3.5-5.1); Sodium 137 mmol/L (135-145); eGFR > 60.00
[2024-04-14 13:05] LABS: % Basophils 0.6 % (0-2); % Eosinophils 4.6 % (0-6); % Immature Granulocytes 0.3 % (0-0.5); % Lymphocytes 17.3 % (20.5-51.1); % Monocytes 9.6 % (1.7-9.3); % Neutrophils 67.6 % (42.2-75.2); Absolute Eosinophils 0.3 10^3/uL (0-0.7); Absolute Lymphocytes 1.1 10^3/uL (1.2-3.4); Absolute Monocytes 0.6 10^3/uL (0.1-0.6); Absolute Neutrophils 4.4 10^3/uL (1.4-6.5); Hematocrit 38.9 % (37.0-47.0); Hemoglobin 12.6 g/dL (12.0-16.0); Mean Corp Hgb Conc. 32.4 g/dL (33.0-37.0); Mean Corpuscular Hgb 31.3 pg (27.0-31.0); Mean Corpuscular Volume 96.8 fL (81.0-99.0); Nucleated Red Blood Cells % 0 %; Platelet Count 170 10^3/uL (130-400); Red Blood Cell Count 4.02 10^6/uL (4.20-5.40); Red Cell Dist. Width 12.9 % (11.5-14.5); White Blood Cell Count 6.5 10^3/uL (4.8-10.8)
== END ==
LOC: OLABMERCHI 12:05
PROVIDERS: ATTENDING PHYSICIAN Hospitalist
DX: E08.00 Diabetes mellitus due to underlying condition with hyperosmolarity without nonketotic hyperglycemic-hyperosmolar coma (NKHHC) (principal); E78.5 Hyperlipidemia, unspecified
CPT/HCPCS: 36415; 80048; 85025

== ENCOUNTER 2024-05-26 09:00 | Emergency (ER) | payer MEDICARE, SELFPAY ==
[2024-05-26 09:06] VITALS: BP 126/61
[2024-05-26 09:08] VITALS: BP 126/61
--- NOTE | 2024-05-26 09:10 | ED.GENMED ---
History of Present Illness
General
Chief Complaint: Change in Mental Status
Source: patient and ambulance crew
Exam Limitations: dementia
Time Seen by Provider: 05/26/24 09:02
History of Present Illness
History of Present Illness:
84yoF with a history of dementia, insulin dependent diabetes, hyperlipidemia, and hypothyroidism presenting via EMS for evaluation of vomiting and diarrhea. Patient has no complaints on arrival and a majority of history is provided by EMS as well
as [facility] staff. Patient reportedly had 1 episode of vomiting this morning. She was also having diarrhea 'nonstop.' Patient was combative this morning and screaming which is unusual for her. alf staff was concerned about a change
in mental status so sent her to the ED. She also had some diarrhea 5 days ago. No reported fevers. Patient is alert and pleasant on arrival.
Phy Exam
General Physical Exam
General Presentation: well appearing and no apparent distress
General age: appears stated age
General Skin: warm and dry
General Habitus: normal
General Mental: alert
ENT Exam
ENT Exam: normocephalic
Cardiovascular Exam
Cardiovascular Exam: regular rate/rhythm and no murmur
Pulmonary Exam
Pulmonary Exam: lungs clear, no respiratory distress, no rales, no crackles and no rhonchi
Gastrointestinal Exam
Gastrointestinal Exam: soft, non distended and other (Mild tenderness in RUQ. Abdomen soft, non-distended. No rebound or guarding. )
Neurological Exam
Neurological Exam: alert and other (Oriented to person and place. Not oriented to time. )
Skin Exam
Skin Exam: normal color and warm/dry
Psychiatric Exam
Psychiatric Exam: normal mood/affect and other (Pleasant and laughing with staff)
Course
Orders/Labs/Results
Orders:
Orders
05/26/24 09:09
Electrocardiogram (*1) Urgent
Reason for Study: Abdominal Pain
CT Head W/o Iv Contrast Urgent
Comment:
Reason For Exam: AMS
EKG- Treatment ONCE
05/26/24 09:12
CT Abd/pel Without Iv Or Oral Urgent
Comment:
Reason For Exam: upper abd pain, vomiting, diarrhea
05/26/24 09:57
Complete Blood Count/With Diff Urgent
Comprehensive Metabolic Panel Urgent
Free T4 Urgent
Lipase Urgent
TSH Reflex To Free T4 Urgent
Troponin I Urgent
Urinalysis Reflex To Culture Urgent
Date Specimen was Collected: 05/26/24
Time Specimen was Collected: 09:55
Urine Microscopic Reflex Cult Urgent
CDIFF [C difficile Antigen & Toxins] Urgent
MARCIAL Source: Feces/Stool
Specimen Description:
Date Specimen was Collected: 05/26/24
Time Specimen was Collected: 09:55
Norovirus by PCR Urgent
MARCIAL Source: Feces/Stool
Specimen Description:
Date Specimen was Collected: 05/26/24
Time Specimen was Collected: 09:55
Stool Culture Urgent
MARCIAL Source: Feces/Stool
Specimen Description:
Date Specimen was Collected: 05/26/24
Time Specimen was Collected: 09:55
05/26/24 10:45
0.9% Sodium Chloride 500 ml [Nss] 500 ml IV BOLUS
05/26/24 10:58
Ondansetron HCl [Zofran] 4 mg PO NOW STA
Abnormal Lab Results
05/26/24
09:57
MCH 31.7 H pg
(27.0-31.0)
MPV 10.6 H fL
(7.4-10.4)
Abs Immat Gran (auto) 0.1 H 10^3/uL
(0-0.05)
Absolute Neuts (auto) 8.2 H 10^3/uL
(1.4-6.5)
Absolute Lymphs (auto) 1.1 L 10^3/uL
(1.2-3.4)
Absolute Monos (auto) 0.8 H 10^3/uL
(0.1-0.6)
Immature Gran % 0.6 H %
(0-0.5)
Neutrophils % 78.8 H %
(42.2-75.2)
Lymphocytes % 10.3 L %
(20.5-51.1)
BUN 18 H mg/dl
(7-17)
Glucose 173 H mg/dl
(70-99)
TSH (Reflex) 7.57 H uIU/ml
(0.47-4.68)
Ur Occult Blood Reflex 2+ A
(Negative)
Urine Bacteria (Reflex) Few A
(Negative)
Urine Albumin (Reflex) 1+ A
(Neg - Trace)
05/26/24 09:57
05/26/24 09:57
Vital Signs
Initial and Last Documented VS:
Initial Vital Signs
Temp Pulse Resp BP Pulse Ox
98.0 F 85 17 126/61 98
05/26/24 09:06 05/26/24 09:06 05/26/24 09:06 05/26/24 09:06 05/26/24 09:06
Last Documented Vital Signs
Temp Pulse Resp BP Pulse Ox
98.0 F 63 14 117/57 99
05/26/24 09:06 05/26/24 14:15 05/26/24 14:15 05/26/24 13:02 05/26/24 12:45
MDM/Problems Addressed
Differential Diagnosis Includes:
84yoF arriving from her [facility] with vomiting and diarrhea. She was also combative today although son reports a history of dementia with intermittent outbursts at baseline. VSS. She is pleasant on arrival. She has mild pain in the RUQ on exam.
No signs of peritonitis noted. Differential diagnosis includes but is not limited to: gastroenteritis, viral illness, dehydration, UTI
Initial ED plan: Check abdominal labs, troponin/EKG, TSH, UA, stool studies, CT head, and CT abdomen. IV fluid bolus.
*EKG
Interpreted by ED Provider?: Yes
EKG Intrepretation Date: 05/26/24
Heart Rate: 65
Rate: normal
Rhythm: sinus
[place]: normal axis
Interval: normal interval
QRS Pattern: normal QRS
Ischemia: no ischemia
*Critical Care Note
Total Time (30-74mins, 75-104mins- exclusive of procedures): Not Applicable
Update Note
Update Note:
White count, electrolytes, and renal function normal. TSH elevated at 7.5 although free T4 is normal. No signs of infection on urinalysis. CT shows some inflammatory stranding around a fat-containing periumbilical hernia but is otherwise negative
for acute findings. Patient had some diarrhea while in the ED. Stool studies sent. Norovirus and C.diff testing negative, stool culture pending. Patient able to tolerate PO intake and son states she is at baseline mental status. No indication
for hospitalization at this time. Prescription given for Zofran. Advised f/u with PCP and ED return precautions discussed. Patient discharged in stable condition.
ED Attending Note
-
Portions of this chart may have been created with voice recognition software.� Occasional wrong word or��sound alike� substitutions may have occurred due to the inherent limitations of voice recognition software.
Discharge Plan
Departure
Patient Disposition: Home (Routine Discharge)
Date of Disposition: 05/26/24
Time of Disposition: 12:54
Patient with high blood pressure during this ER visit?: No
Discharge Problem:
Nausea, vomiting, and diarrhea
Instructions: Diarrhea in adults - ED discharge instructions
Prescriptions:
New
ondansetron 4 mg tablet,disintegrating
4 mg PO Q8H PRN (Reason: nausea and vomiting) Qty: 14 0RF
No Action
latanoprost 0.005 % Drops
1 drp BOTH EYES HS
levothyroxine 50 mcg Tablet
50 mcg PO DAILY
aspirin 81 mg Tablet,Chewable
81 mg PO DAILY
montelukast 10 mg Tablet
10 mg PO DAILY
rosuvastatin 20 mg Tablet
20 mg PO DAILY
melatonin 5 mg Tablet
5 mg PO HSPRN PRN (Reason: insomnia)
nystatin 100,000 unit/gram Powder
1 applic TOPICAL TID
Rx Instructions:
aplly to bilat breasts/abdominal folds/groin folds
acetaminophen 325 mg Tablet
650 mg PO Q6HPRN PRN (Reason: mild pain)
magnesium hydroxide [Milk of Magnesia] 400 mg/5 mL Suspension
400 mg PO HSPRN PRN (Reason: no BM in 3 days)
bisacodyl 10 mg Suppository
10 mg SC DAILYPRN PRN (Reason: no results BM from MOM)
omeprazole 20 mg Capsule,Delayed Release(Dr/Ec)
20 mg PO DAILY
PeriGuard Ointment
1 ea TOPICAL TID
Rx Instructions:
each shift
insulin glargine [Basaglar KwikPen U-100 Insulin] 100 unit/mL (3 mL) Insulin Pen
18 unit SC DAILY
Robitussin Cough-Chest Dimitri DM 5-50 mg/5 mL Liquid
20 ml PO Q4H PRN (Reason: cough/chest congestion)
Referrals:
Gary Asif I., DO [Family Provider] -
Activity Restrictions/Additional Instructions:
Take Zofran as needed for nausea. Drink plenty of fluids and eat a bland diet.
Please follow-up with your family doctor. Return to the ER with any new or worsening symptoms.
Interventions
Interventions:
*Risk Screen - Suicide Last Done: 05/26/24 09:06
*General Assessment Last Done: 05/26/24 09:06
*Neglect/Abuse Screening Last Done: 05/26/24 09:06
ED- Fall Risk Assessment Last Done: 05/26/24 09:49
*ED COVID-19 Vaccine History Last Done: 05/26/24 09:06
*Nursing Disposition Last Done: 05/26/24 14:34
ED- Pulmonary Assessment Last Done: 05/26/24 09:49
ED- Neurological Assessment Last Done: 05/26/24 09:49
ED- Cardiac Assessment Last Done: 05/26/24 09:49
Discharge Date and Time
Discharge Date/Time: 05/26/24 14:35
Print Language: ICELANDIC
[2024-05-26 09:22] VITALS: BMI 28.4
[2024-05-26 10:00] VITALS: BP 127/101
[2024-05-26 10:26] LABS: % Basophils 0.3 % (0-2); % Eosinophils 2.6 % (0-6); % Immature Granulocytes 0.6 % (0-0.5); % Lymphocytes 10.3 % (20.5-51.1); % Monocytes 7.4 % (1.7-9.3); % Neutrophils 78.8 % (42.2-75.2); Absolute Eosinophils 0.3 10^3/uL (0-0.7); Absolute Immature Granulocytes 0.1 10^3/uL (0-0.05); Absolute Lymphocytes 1.1 10^3/uL (1.2-3.4); Absolute Monocytes 0.8 10^3/uL (0.1-0.6); Absolute Neutrophils 8.2 10^3/uL (1.4-6.5); Hematocrit 41.8 % (37.0-47.0); Hemoglobin 13.8 g/dL (12.0-16.0); Mean Corpuscular Hgb 31.7 pg (27.0-31.0); Mean Corpuscular Volume 96.1 fL (81.0-99.0); Mean Platelet Volume 10.6 fL (7.4-10.4); Nucleated Red Blood Cells % 0 %; Platelet Count 191 10^3/uL (130-400); Red Blood Cell Count 4.35 10^6/uL (4.20-5.40); Red Cell Dist. Width 12.7 % (11.5-14.5); White Blood Cell Count 10.4 10^3/uL (4.8-10.8)
[2024-05-26 10:32] LABS: ALT (SGPT) 17 U/L (0-35); AST (SGOT) 27 U/L (14-36); Albumin 4.3 g/dl (3.5-5.0); Alkaline Phosphatase 105 U/L (38-126); Blood Urea Nitrogen 18 mg/dl (7-17); Calcium 9.7 mg/dl (8.4-10.2); Carbon Dioxide 27 mmol/L (22-30); Chloride 104 mmol/L (98-107); Estimated Creatinine Clearance 44 ml/min; Glucose 173 mg/dl (70-99); Lipase 39 U/L (23-300); Potassium 4.2 mmol/L (3.5-5.1); Sodium 139 mmol/L (135-145); Total Bilirubin 0.9 mg/dl (0.2-1.3); Total Protein 7.2 g/dl (6.3-8.2)
[2024-05-26 10:41] LABS: Troponin I < 0.012 ng/ml
[2024-05-26] MEDS: NSS 500 IV (10:54)
[2024-05-26 10:56] VITALS: BP 137/82
[2024-05-26 10:56] LABS: Urine Albumin 1+ (Neg - Trace); Urine Bilirubin Negative (Negative); Urine Character Clear (Clear); Urine Color Yellow; Urine Glucose Negative (Negative); Urine Ketone Negative (Negative); Urine Leukocyte Negative (Negative); Urine Nitrite Negative (Negative); Urine Occult Blood 2+ (Negative); Urine Urobilinogen Negative (Neg - 1+)
[2024-05-26 11:00] VITALS: BP 126/71
[2024-05-26 11:12] LABS: TSH Reflex To Free T4 7.57 uIU/ml (0.47-4.68)
[2024-05-26 11:16] LABS: Urine Mucus Few; Urine Squamous Cell 0-2 /LPF (Few)
[2024-05-26 11:17] LABS: Urine Bacteria Few (Negative); Urine Hyaline Cast 0-2 /LPF (0-2); Urine Red Blood Cell 0-2 /HPF (0-2)
[2024-05-26] MEDS: ZOFRAN 4 MG PO (11:19)
[2024-05-26 13:02] VITALS: BP 117/57
== END 2024-05-26 14:35 | disposition home or self-care (01) ==
LOC: EMR 09:00
PROVIDERS: Physician Assistant; EMERGENCY PHYSICIAN Student in an Organized Health Care Education/Training Program; FAMILY PHYSICIAN Internal Medicine
DX: R11.2 Nausea with vomiting, unspecified (principal); R19.7 Diarrhea, unspecified; F03.90 Unspecified dementia, unspecified severity, without behavioral disturbance, psychotic disturbance, mood disturbance, and anxiety; E78.00 Pure hypercholesterolemia, unspecified; E03.9 Hypothyroidism, unspecified; E11.9 Type 2 diabetes mellitus without complications
CPT/HCPCS: 99284; 96360; 70450; 74176; 80053; 81003; 81015; 83690; 84439; 84443; 84484; 85025; 87045; 87046; 87324; 87427; 87449; 87798; 93005

== ENCOUNTER 2024-07-10 09:37 | Emergency (ER) | payer MEDICARE, SELFPAY ==
[2024-07-10 09:42] VITALS: BP 172/86
[2024-07-10 09:44] VITALS: BP 172/86
--- NOTE | 2024-07-10 09:46 | ED.MUSCINJ ---
HPI-Injury
General
Chief Complaint: Fall
Source: patient
Exam Limitations: none
Time Seen by Provider: 07/10/24 09:45
History of Present Illness-Injury
Initial Injury comments:
84-year-old female with dementia from [facility] after a fall last evening. She was complaining of right hip pain. Patient is very limited historian and her history is inconsistent. No anticoagulants listed from prison.
Phy Exam
Physical Exam
Physical Exam:
General: Uncomfortable appearing female no acute respiratory distress
HEENT normocephalic no scalp abrasion hematoma
Heart: Regular rate and rhythm
Lungs: Clear no wheeze
Musculoskeletal exam: Patient complains of right hip pain however there is no deformity. No significant reproduction of pain with internal or external rotation of the right leg. The spine is nontender
Extremities: No cyanosis
Injury Course
Orders/Labs/Results
Orders:
Orders
07/10/24 09:45
CR Hip - RT w/wo Pel 2-3 Vw* Urgent
Comment:
Reason For Exam: fall, pain
Include a pelvis x-ray?: Yes
07/10/24 09:48
CT Head W/o Iv Contrast Urgent
Comment:
Reason For Exam: fall
07/10/24 12:04
Complete Blood Count/With Diff Urgent
Comprehensive Metabolic Panel Urgent
Magnesium Urgent
07/10/24 13:06
Acetaminophen [Tylenol] 650 mg PO NOW STA
Abnormal Lab Results
07/10/24
12:04
RBC 3.72 L 10^6/uL
(4.20-5.40)
Hgb 11.9 L g/dL
(12.0-16.0)
Hct 35.0 L %
(37.0-47.0)
MCH 32.0 H pg
(27.0-31.0)
Absolute Lymphs (auto) 0.8 L 10^3/uL
(1.2-3.4)
Lymphocytes % 14.8 L %
(20.5-51.1)
Monocytes % 10.0 H %
(1.7-9.3)
Chloride 108 H mmol/L
(98-107)
BUN 26 H mg/dl
(7-17)
Glucose 172 H mg/dl
(70-99)
Total Protein 5.9 L g/dl
(6.3-8.2)
Albumin 3.3 L g/dl
(3.5-5.0)
07/10/24 12:04
07/10/24 12:04
MDM/Problems Addressed
Differential Diagnosis Includes:
Fall with reported right hip pain. X-ray right hip pending CT of head pending.
*Critical Care Note
Total Time (30-74mins, 75-104mins- exclusive of procedures): Not Applicable
Update Note
Update Note:
CT head negative for acute finding. X-ray right hip and pelvis also negative for acute finding. Discussed with family, son and daughter who are now in the room. They describe cramping-like pain that the patient has complained about over the past
several days. Check labs. Electrolytes without significant finding. Question possible radiculopathy of the leg. No indication for admission. Will start Tylenol for pain control. Avoid narcotics and history of dementia. Family in agreement.
Stable for discharge back to facility
ED Attending Note
-
Portions of this chart may have been created with voice recognition software.� Occasional wrong word or��sound alike� substitutions may have occurred due to the inherent limitations of voice recognition software.
Discharge Plan
Departure
Patient Disposition: Home (Routine Discharge)
Date of Disposition: 07/10/24
Time of Disposition: 13:41
Patient with high blood pressure during this ER visit?: No
Discharge Problem:
Acute leg pain
Prescriptions:
No Action
latanoprost 0.005 % Drops
1 drp BOTH EYES HS
levothyroxine 50 mcg Tablet
50 mcg PO DAILY
aspirin 81 mg Tablet,Chewable
81 mg PO DAILY
montelukast 10 mg Tablet
10 mg PO DAILY
rosuvastatin 20 mg Tablet
20 mg PO DAILY
melatonin 5 mg Tablet
5 mg PO HSPRN PRN (Reason: insomnia)
nystatin 100,000 unit/gram Powder
1 applic TOPICAL TID
Rx Instructions:
aplly to bilat breasts/abdominal folds/groin folds
acetaminophen 325 mg Tablet
650 mg PO Q6HPRN PRN (Reason: mild pain)
magnesium hydroxide [Milk of Magnesia] 400 mg/5 mL Suspension
400 mg PO HSPRN PRN (Reason: no BM in 3 days)
bisacodyl 10 mg Suppository
10 mg MA DAILYPRN PRN (Reason: no results BM from MOM)
omeprazole 20 mg Capsule,Delayed Release(Dr/Ec)
20 mg PO DAILY
PeriGuard Ointment
1 ea TOPICAL TID
Rx Instructions:
each shift
insulin glargine [Basaglar KwikPen U-100 Insulin] 100 unit/mL (3 mL) Insulin Pen
18 unit SC DAILY
Robitussin Cough-Chest Dimitri DM 5-50 mg/5 mL Liquid
20 ml PO Q4H PRN (Reason: cough/chest congestion)
ondansetron 4 mg tablet,disintegrating
4 mg PO Q8H PRN (Reason: nausea and vomiting) Qty: 14 0RF
Referrals:
Gary Asif I., DO [Family Provider] -
Activity Restrictions/Additional Instructions:
Patient brought here for evaluation of leg pain. There is no fracture. Suspect possible radiculopathy versus muscle cramps. Use Tylenol for pain. Return if needed otherwise
Interventions
Interventions:
*Risk Screen - Suicide Last Done: 07/10/24 09:42
*General Assessment Last Done: 07/10/24 09:42
*Neglect/Abuse Screening Last Done: 07/10/24 09:42
*ED COVID-19 Vaccine History Last Done: 07/10/24 12:56
ED-Musculoskeletal Assessment Last Done: 07/10/24 12:57
ED- Neurological Assessment Last Done: 07/10/24 10:15
ED-Skin Assessment Last Done: 07/10/24 09:42
Discharge Date and Time
Print Language: ROMANSH
[2024-07-10 10:00] VITALS: BP 140/47
[2024-07-10 12:19] LABS: % Basophils 0.7 % (0-2); % Eosinophils 4.2 % (0-6); % Immature Granulocytes 0.2 % (0-0.5); % Lymphocytes 14.8 % (20.5-51.1); % Neutrophils 70.1 % (42.2-75.2); Absolute Eosinophils 0.2 10^3/uL (0-0.7); Absolute Lymphocytes 0.8 10^3/uL (1.2-3.4); Absolute Monocytes 0.6 10^3/uL (0.1-0.6); Hemoglobin 11.9 g/dL (12.0-16.0); Mean Corpuscular Volume 94.1 fL (81.0-99.0); Mean Platelet Volume 9.8 fL (7.4-10.4); Nucleated Red Blood Cells % 0 %; Platelet Count 155 10^3/uL (130-400); Red Blood Cell Count 3.72 10^6/uL (4.20-5.40); Red Cell Dist. Width 12.9 % (11.5-14.5); White Blood Cell Count 5.7 10^3/uL (4.8-10.8)
[2024-07-10 12:31] LABS: ALT (SGPT) 19 U/L (0-35); AST (SGOT) 31 U/L (14-36); Albumin 3.3 g/dl (3.5-5.0); Alkaline Phosphatase 94 U/L (38-126); Blood Urea Nitrogen 26 mg/dl (7-17); Calcium 9.4 mg/dl (8.4-10.2); Carbon Dioxide 27 mmol/L (22-30); Chloride 108 mmol/L (98-107); Glucose 172 mg/dl (70-99); Magnesium 1.9 mg/dl (1.6-2.3); Potassium 4.3 mmol/L (3.5-5.1); Sodium 139 mmol/L (135-145); Total Bilirubin 0.6 mg/dl (0.2-1.3); Total Protein 5.9 g/dl (6.3-8.2)
[2024-07-10 13:05] VITALS: BP 157/65
[2024-07-10] MEDS: TYLENOL 650 MG PO (13:15)
== END 2024-07-10 14:00 | disposition home or self-care (01) ==
LOC: EMR 09:37
PROVIDERS: Physician Assistant; EMERGENCY PHYSICIAN Emergency Medicine; FAMILY PHYSICIAN Internal Medicine
DX: M79.604 Pain in right leg (principal); S09.90XA Unspecified injury of head, initial encounter; W19.XXXA Unspecified fall, initial encounter; F03.90 Unspecified dementia, unspecified severity, without behavioral disturbance, psychotic disturbance, mood disturbance, and anxiety
CPT/HCPCS: 99284; 70450; 73502; 80053; 83735; 85025

== ENCOUNTER 2024-07-13 17:03 | Emergency (ER) | payer MEDICARE, SELFPAY ==
[2024-07-13 17:04] VITALS: BP 158/68
--- NOTE | 2024-07-13 17:44 | ED.GENMED ---
History of Present Illness
General
Chief Complaint: Fall
Source: patient
Exam Limitations: none
Time Seen by Provider: 07/13/24 17:32
History of Present Illness
History of Present Illness:
See MDM
Past History
Past History
ED Past Medical History: Asthma, Hypercholesterolemia, IDDM and Psychiatric
ED Past Surgical History: Cholecystectomy and Gynecological
Social History
Tobacco: Non-smoker
Alcohol: None
Phy Exam
Physical Exam
Physical Exam:
See MDM
Course
Orders/Labs/Results
Orders:
Orders
07/13/24 17:07
Knee, Left 4 or More Views [CR Knee - Left 4 Or More View*] Urgent
Comment:
Reason For Exam: injury
Vital Signs
Initial and Last Documented VS:
Initial Vital Signs
Temp Pulse Resp BP Pulse Ox
98.2 F 54 16 158/68 98
07/13/24 17:04 07/13/24 17:04 07/13/24 17:04 07/13/24 17:04 07/13/24 17:04
Last Documented Vital Signs
Temp Pulse Resp BP Pulse Ox
98.2 F 102 18 111/56 99
07/13/24 17:04 07/13/24 20:48 07/13/24 20:48 07/13/24 20:48 07/13/24 20:48
MDM/Problems Addressed
Differential Diagnosis Includes:
HPI and MDM Narrative:
84-year-old female presenting with left knee pain. Patient states she tripped and fell a few days ago and has been dealing with bruising and pain at her left kneecap ever since. She does not think she hit her head. On exam, she does have bruising
to her left medial knee along the patellar ligament. However, patient is able to hip flex. Joint stable. No effusion noted. X-ray without obvious fracture. Patient able to ambulate. Will place in Michael wrap discussed follow-up with orthopedics
Physical exam
General: Well appearing and non-toxic
HEENT: protecting airway
Neck: appears supple
CV: No evidence of cyanosis
Resp: No accessory muscle use
Abd: Non-distended
Extremities: bruising and tenderness to left medial knee.
Neuro: alert
Psych: Normal affect
Skin: Intact
Problems Addressed including Acute and Chronic Conditions affecting care:
1. Left knee injury
Acuity: acute
Prognosis: stable
Details: X-ray without obvious fracture. Joint stable. Discussed follow-up with orthopedics
Differential Diagnosis (but not limited to): Fracture, ligamentous injury, sprain
Testing considered: CT head but she has no clinical signs of intracranial hemorrhage
Drug therapy (if applicable): OTC meds, please see d/c instruction regarding Rx drugs
Amount and/or Complexity of Data Reviewed
Clinical info obtained from: Patient
External data reviewed: N/A
Labs I independently reviewed (but not limited to): N/A
Radiology: X-ray independently reviewed: Left knee x-ray negative for fracture
Pulse Ox: not hypoxic
EKG independently reviewed: N/A
Financial Sales Professional: N/A
Critical Care: N/A
Risk of Complication:
Social Determinants of health: Good social support
Discussed with other providers: N/A
Escalation of Care includes Admit/Obs: After being observed in the Emergency Department, pt stable for discharge.
Occasional wrong word or 'sound a like' substitutions may have occurred due to the inherent limitations of voice recognition software. Read the chart carefully and recognize, using context, where substitutions have occurred.
*Critical Care Note
Total Time (30-74mins, 75-104mins- exclusive of procedures): Not Applicable
ED Attending Note
-
Portions of this chart may have been created with voice recognition software.� Occasional wrong word or��sound alike� substitutions may have occurred due to the inherent limitations of voice recognition software.
Discharge Plan
Departure
Patient Disposition: Home (Routine Discharge)
Date of Disposition: 07/13/24
Time of Disposition: 17:55
Patient with high blood pressure during this ER visit?: Yes
Discharge Problem:
Contusion of knee, left
Instructions: Knee sprain, BLOOD PRESSURE
Prescriptions:
No Action
latanoprost 0.005 % Drops
1 drp BOTH EYES HS
levothyroxine 50 mcg Tablet
50 mcg PO DAILY
aspirin 81 mg Tablet,Chewable
81 mg PO DAILY
montelukast 10 mg Tablet
10 mg PO DAILY
rosuvastatin 20 mg Tablet
20 mg PO DAILY
melatonin 5 mg Tablet
5 mg PO HSPRN PRN (Reason: insomnia)
nystatin 100,000 unit/gram Powder
1 applic TOPICAL TID
Rx Instructions:
aplly to bilat breasts/abdominal folds/groin folds
acetaminophen 325 mg Tablet
650 mg PO Q6HPRN PRN (Reason: mild pain)
magnesium hydroxide [Milk of Magnesia] 400 mg/5 mL Suspension
400 mg PO HSPRN PRN (Reason: no BM in 3 days)
bisacodyl 10 mg Suppository
10 mg NV DAILYPRN PRN (Reason: no results BM from MOM)
omeprazole 20 mg Capsule,Delayed Release(Dr/Ec)
20 mg PO DAILY
PeriGuard Ointment
1 ea TOPICAL TID
Rx Instructions:
each shift
insulin glargine [Basaglar KwikPen U-100 Insulin] 100 unit/mL (3 mL) Insulin Pen
18 unit SC DAILY
Robitussin Cough-Chest Dimitri DM 5-50 mg/5 mL Liquid
20 ml PO Q4H PRN (Reason: cough/chest congestion)
ondansetron 4 mg tablet,disintegrating
4 mg PO Q8H PRN (Reason: nausea and vomiting) Qty: 14 0RF
Referrals:
Griffin Eng MD [Active] -
Activity Restrictions/Additional Instructions:
Please return for any worsening symptoms.
You may return at any time if you have further concerns.
Please follow up with your doctor at the first available appointment, preferably this week.
Please follow-up with the orthopedist.
Thank you for choosing [facility].
Interventions
Interventions:
*Risk Screen - Suicide Last Done: 07/13/24 17:04
*General Assessment Last Done: 07/13/24 17:32
*Neglect/Abuse Screening Last Done: 07/13/24 17:04
*ED- Fall Risk Assessment Last Done: 07/13/24 17:32
*ED COVID-19 Vaccine History Last Done: 07/13/24 17:32
*Nursing Disposition Last Done: 07/13/24 20:30
ED-Musculoskeletal Assessment Last Done: 07/13/24 17:32
ED- Neurological Assessment Last Done: 07/13/24 17:32
ED-Skin Assessment Last Done: 07/13/24 17:32
Discharge Date and Time
Discharge Date/Time: 07/13/24 20:30
Print Language: CZECH
[2024-07-13 20:48] VITALS: BP 111/56
== END 2024-07-13 20:30 | disposition home or self-care (01) ==
LOC: EMR 17:03
PROVIDERS: EMERGENCY PHYSICIAN Student in an Organized Health Care Education/Training Program; FAMILY PHYSICIAN Internal Medicine
DX: S80.02XA Contusion of left knee, initial encounter (principal); W01.0XXA Fall on same level from slipping, tripping and stumbling without subsequent striking against object, initial encounter; J45.909 Unspecified asthma, uncomplicated; E78.00 Pure hypercholesterolemia, unspecified; E11.9 Type 2 diabetes mellitus without complications; Z90.49 Acquired absence of other specified parts of digestive tract
CPT/HCPCS: 99283; 73564

== ENCOUNTER 2024-08-16 20:44 | Emergency (ER) | payer MEDICARE, SELFPAY ==
[2024-08-16 20:49] VITALS: BP 126/91
--- NOTE | 2024-08-16 20:50 | ED.GENMED ---
History of Present Illness
General
Chief Complaint: Fall
Time Seen by Provider: 08/16/24 20:48
History of Present Illness
History of Present Illness:
TIME OF INITIAL ENCOUNTER:
HPI: I spoke to EMS for history of the patient has dementia. She reportedly had a nearly witnessed fall by staff but is uncertain if she struck her head. Of note, the patient is normally very agitated which is currently present as well. There was
some intermittent concerns for pain at the left thigh/knee however this was inconsistent. The patient is a very limited historian.
EXAM:
GENERAL: Appears in no distress
HEENT: Moist oral mucosa
C-SPINE: No midline C-spine tenderness
HEAD: No evidence of craniofacial trauma
CARDIOVASCULAR: Regular rate and rhythm
PULMONARY: No respiratory distress, breathing is nonlabored, equal and clear breath sounds
ABDOMEN: Soft and nontender with no peritoneal signs
NEUROLOGIC: The patient has evidence of dementia, not oriented to month or place, strength is equal in all extremities
EXTREMITIES: She inconsistently has decreased active range of motion at the left hip/knee but no definite bony tenderness
PYSCHIATRIC: Very limited historian, poor insight and judgment, she appears agitated at times
NUMBER AND COMPLEXITY OF PROBLEMS ADDRESSED AT THE ENCOUNTER
� Chronic conditions affecting care: Dementia, IDDM, 'mood disturbance and psychotic disturbance'
� Acute Exacerbation and/or Progression of Chronic Illness: This is an acute problem
� Differential Diagnosis includes: Exacerbation of neuropathic pain from the spine, femur fracture, hip fracture, pelvis fracture, contusion, progression of psychotic disturbance
AMOUNT AND/OR COMPLEXITY OF DATA TO BE REVIEWED AND ANALYZED
� I performed an independent evaluation of and my interpretation is:
EKG:
CT: CT brain shows reviewed with no sign of intracranial hemorrhage
X-rays: X-ray showed no evidence of fracture
Laboratory Studies: Glucose 195
Other:
� Review of other/old records: The patient was seen here 1 month ago twice for leg pain.
� Clinical information was obtained by an independent historian: Spoke to daughter at bedside
� Prescriptions/Medications Considered but not given:
� Further testing considered but not performed:
RISK OF COMPLICATIONS AND/OR MORBIDITY OR MORTALITY OF PATIENT MANAGEMENT
� Social determinants of health affecting care: Resides at [facility]
� Discussion with other providers:
� Escalation of care including admission/observation vs risk of discharge considered: The patient was intermittently combative in the emergency department. She intermittently complained of pain near the left thigh. Morphine was
initially given but she could not tolerate getting the x-rays. 1 dose of Ativan was then given which was enough to sedate her to facilitate getting the images. No abnormalities noted on x-ray regarding fracture.
ANY OTHER UPDATES:
11:15 PM: I reassessed patient. Resting comfortably although somewhat sedate after meds. She is much more comfortable. I updated the daughter.
Past History
Past History
ED Past Medical History: Asthma, Hypercholesterolemia, IDDM and Psychiatric
ED Past Surgical History: Cholecystectomy and Gynecological
Social History
Tobacco: Non-smoker
Alcohol: None
Phy Exam
Physical Exam
Physical Exam:
See HPI
Course
Orders/Labs/Results
Orders:
Orders
08/16/24 20:48
CR Femur - Left Min 2 Vw Urgent
Comment:
Reason For Exam: trauma
CR Hip - LT w/wo Pel 2-3 Vw* Urgent
Comment:
Reason For Exam: trauma pain
Include a pelvis x-ray?: Yes
08/16/24 20:49
CT Head W/o Iv Contrast Urgent
Comment:
Reason For Exam: head trauma? dementia
08/16/24 20:52
Bedside Glucose- Treatment ONCE
08/16/24 21:56
Morphine Sulfate 2 mg .ROUTE .STK-MED ONE
Morphine Sulfate 2 mg IV NOW STA
Ondansetron Injectable [Zofran] 4 mg .ROUTE .STK-MED ONE
Ondansetron Injectable [Zofran] 4 mg IV NOW STA
08/16/24 22:22
Lorazepam [Ativan] 1 mg IV NOW STA
Lorazepam [Ativan] 2 mg .ROUTE .STK-MED ONE
Abnormal Lab Results
08/16/24
20:55
POC Glucose 195 H mg/dl
(70-99)
Vital Signs
Initial and Last Documented VS:
Initial Vital Signs
Temp Pulse Resp BP Pulse Ox
36.6 C 91 20 126/91 99
08/16/24 20:49 08/16/24 20:49 08/16/24 20:49 08/16/24 20:49 08/16/24 20:49
Last Documented Vital Signs
Temp Pulse Resp BP Pulse Ox
36.6 C 91 20 126/91 99
08/16/24 20:49 08/16/24 20:49 08/16/24 20:49 08/16/24 20:49 08/16/24 20:49
*Critical Care Note
Total Time (30-74mins, 75-104mins- exclusive of procedures): Not Applicable
ED Attending Note
-
Portions of this chart may have been created with voice recognition software.� Occasional wrong word or��sound alike� substitutions may have occurred due to the inherent limitations of voice recognition software.
Discharge Plan
Departure
Patient Disposition: Home (Routine Discharge)
Date of Disposition: 08/16/24
Time of Disposition: 23:12
Patient with high blood pressure during this ER visit?: Yes
Discharge Problem:
Fall
Instructions: Preventing falls in adults, BLOOD PRESSURE
Prescriptions:
No Action
latanoprost 0.005 % Drops
1 drp BOTH EYES HS
levothyroxine 50 mcg Tablet
50 mcg PO DAILY
aspirin 81 mg Tablet,Chewable
81 mg PO DAILY
montelukast 10 mg Tablet
10 mg PO DAILY
rosuvastatin 20 mg Tablet
20 mg PO DAILY
melatonin 5 mg Tablet
5 mg PO HSPRN PRN (Reason: insomnia)
nystatin 100,000 unit/gram Powder
1 applic TOPICAL TID
Rx Instructions:
aplly to bilat breasts/abdominal folds/groin folds
acetaminophen 325 mg Tablet
650 mg PO Q6HPRN PRN (Reason: mild pain)
magnesium hydroxide [Milk of Magnesia] 400 mg/5 mL Suspension
400 mg PO HSPRN PRN (Reason: no BM in 3 days)
bisacodyl 10 mg Suppository
10 mg MA DAILYPRN PRN (Reason: no results BM from MOM)
omeprazole 20 mg Capsule,Delayed Release(Dr/Ec)
20 mg PO DAILY
PeriGuard Ointment
1 ea TOPICAL TID
Rx Instructions:
each shift
insulin glargine [Basaglar KwikPen U-100 Insulin] 100 unit/mL (3 mL) Insulin Pen
18 unit SC DAILY
Robitussin Cough-Chest Dimitri DM 5-50 mg/5 mL Liquid
20 ml PO Q4H PRN (Reason: cough/chest congestion)
ondansetron 4 mg tablet,disintegrating
4 mg PO Q8H PRN (Reason: nausea and vomiting) Qty: 14 0RF
Referrals:
Matthieu Sam DO [Family Provider] -
Activity Restrictions/Additional Instructions:
The CAT scan of the brain shows no acute abnormality including no bleeding. Blood sugar is 195. X-rays of the left hip, pelvis, and left femur showed no fracture.
Interventions
Interventions:
*Risk Screen - Suicide Last Done: 08/16/24 20:52
*General Assessment Last Done: 08/16/24 20:52
*Neglect/Abuse Screening Last Done: 08/16/24 20:52
*ED- Fall Risk Assessment Last Done: 08/16/24 20:52
*ED COVID-19 Vaccine History Last Done: 08/16/24 20:52
ED-Musculoskeletal Assessment Last Done: 08/16/24 21:00
ED- Neurological Assessment Last Done: 08/16/24 21:00
ED-Skin Assessment Last Done: 08/16/24 21:00
Discharge Date and Time
Print Language: [place] LEONE[place]
[2024-08-16 20:56] LABS: Glucose - Point of Care 195 mg/dl (70-99)
[2024-08-16] MEDS: MORPHINE SULFATE 2 MG IV (21:57)
[2024-08-16] MEDS: ZOFRAN 4 MG IV (21:57)
[2024-08-16] MEDS: ATIVAN 1 MG IV (22:23)
[2024-08-17 01:23] VITALS: BP 135/59
== END 2024-08-17 01:24 | disposition home or self-care (01) ==
LOC: EMR 20:44
PROVIDERS: EMERGENCY PHYSICIAN Emergency Medicine; FAMILY PHYSICIAN Student in an Organized Health Care Education/Training Program
DX: M79.652 Pain in left thigh (principal); W19.XXXA Unspecified fall, initial encounter; F03.911 Unspecified dementia, unspecified severity, with agitation; E11.9 Type 2 diabetes mellitus without complications; E78.00 Pure hypercholesterolemia, unspecified; J45.909 Unspecified asthma, uncomplicated; Z79.4 Long term (current) use of insulin
CPT/HCPCS: 96374; 96375; 99284; 70450; 73502; 73552; 82962